=== PATIENT | male | born 1955 | race Caucasian/White ===

== ENCOUNTER 2023-09-08 09:30 | Outpatient (RCR) | payer OTHER, MEDICARE, SELFPAY ==
--- NOTE | 2023-07-11 10:55 | HP.PTEVAL ---
Patient's Visit Information Visit Information Visit Information: JUDITH TEJADA is a 67 year old M referred to Physical Therapy by Dr. Leo Loyola DPM with a diagnosis of R plantar fascitis. Date of Evaluation: 07/11/23 Physical Therapist: Turner Leigh DPT Visit Plan Frequency: 2x /Week Duration: 4 Weeks Plan: Start with graston and US to R medial longitudinal arch 3) manual to longitudinal arch 2) G/S stretching 3) foot intrinsic strengthening in [place] progressing to [facility] [place] Subjective Subjective: Pt. is here today for his initial evaluation with diagnosis of R plantar fasciitis. Pt. reports having symptoms since January. He has tried several treatments including stretching/rolling at home, injection, orthotics. Pt. is hopeful to reduce symptoms in order to get back to all recreational walking without issues. Pt. has had some relief with orthotics, but is still pretty sore. Worse in the AMs and with initial standing. Pt. at medial longitudinal arch. No N/T noted. Pt. has done some stretching, but super consistent at home. Pain R longitudinal arch: Pain Intensity (Out of 10): 4 Pain Intensity Range: 3 and 8 Objective Objective: POSTURE: Pt. has fairly good arch positioning in stance. Drop in navicular in SLS, barefoot. Normal knee positioning noted. PALPATION: pt. very tender along longitudinal arch and medial plantar fascia origin. NEURO: Normal throughout BLEs. ROM: L ankle: DF 16deg, PF 47deg, INV 13deg, EVR 7deg. R ankle: DF 8deg, PF 44deg, INV 12deg, EVR 4 deg. Normal B knee ROM noted. MMT: L ankle 5/5 throughout; foot flexor intrinsic 5/5. R ankle: DF 5/5, PF 5-/5 increase NW, INV 5-/5 increase NW, EVR 5/5 NE. Foot intrinsic: 4/5 increase NW. GAIT: Barefoot. Pt. ambulates with antalgic pattern during R stance phase and push off (pre swing). Pt. has less pain with his shoes on, but still antalgic. STAIRS: ascending normal with 1 HR, descending: early heel off mild increase NW. SPECIAL TESTING: + windlass test on R side. both with bent and straight knee in WBing. Balance/Special Test Scores Lower Extremity Functional Score: 44 Goals Goal 1:: LTG: Pt. to be I with HEP for LE stretching and strengthenening. Goal Time Frame: 4-6 Weeks Goal 2:: STG: pt. to have decreased R foot pain to less than 3/10 with all recreational walking and ADLs. Goal Time Frame: 2-4 Weeks Goal 3:: LTG: pt. to complete all recreational walking without increase in R foot pain. Goal Time Frame: 4-6 Weeks Goal 4:: LTG: pt. to have increased R ankle and foot intrinsic strength to 5/5 throughout in order to support longitudinal arch with all recreational activities. Goal Time Frame: 4-6 Weeks Rehabilitation Potential Physical Therapy Diagnosis: Pt. has signs and symptoms consistent with R plantar fasciitis. Pt. has marked hypomobility, increased pain in plantar fascia and difficulty with walking. pt. would benefit from PT to address the above limitations progressing back to all recreational activities without incfrease in symptoms. Rehabilitation Potential: Excellent Anticipated Interventions Patient/Client Instruction: Educate patient on: Condition, Plan of Care, Risk Factors and Benefits of Fitness Program For the Purpose of:: To facilitate caregiver knowledge, To improve self management, To prevent re-injury, To improve ability to perform tasks related to life management and To improve tolerance to ADL's Therapeutic Exercise to Include: Strength training, Power training and Postural training For the Purpose of:: To decrease pain, To increase ROM, To improve nutrient delivery to tissue, To increase oxygenation perfusion, To improve health of tissue, To decrease soft tissue restriction and To increase flexibility/ROM Manual Therapy Techniques to Include: Mobilization, Functional dry needling and Soft tissue mobilization For the Purpose of:: To decrease pain, To decrease swelling/inflammation, To increase ROM, To improve nutrient delivery to tissue, To improve muscle performance and motor function, To decrease soft tissue restriction and To increase flexibility/ROM Ultrasound (thermal/non thermal): Yes For the Purpose of:: To decrease pain, To decrease swelling/inflammation and To increase ROM Text: Thank you for the opportunity to evaluate your patient. For Medicare and Medicare HMO plans, please review the plan of care and approve it. It will need to be FAXED BACK to us at [phone] for Medicare purposes. For Medicare only, by signing this I certify the plan of care. Please let me know if there are questions or concerns regarding this plan of care. Physician Signature: Date:
--- NOTE | 2023-12-18 12:50 | HP.PT.NRP ---
Patient Information Patient Information: JUDITH TEJADA was seen in my office for initial evaluation on 07/11/23. The following Plan of Care was established for this patient: POC Established Initial Frequency: 2x /Week Initial Duration: 4 Weeks Anticipated Interventions Patient/Client Instruction: Educate patient on: Condition, Plan of Care, Risk Factors and Benefits of Fitness Program For the Purpose of:: To facilitate caregiver knowledge, To improve self management, To prevent re-injury, To improve ability to perform tasks related to life management and To improve tolerance to ADL's Therapeutic Exercise to Include: Strength training, Power training and Postural training For the Purpose of:: To decrease pain, To increase ROM, To improve nutrient delivery to tissue, To increase oxygenation perfusion, To improve health of tissue, To decrease soft tissue restriction and To increase flexibility/ROM Manual Therapy Techniques to Include: Mobilization, Functional dry needling and Soft tissue mobilization For the Purpose of:: To decrease pain, To decrease swelling/inflammation, To increase ROM, To improve nutrient delivery to tissue, To improve muscle performance and motor function, To decrease soft tissue restriction and To increase flexibility/ROM Ultrasound (thermal/non thermal): Yes For the Purpose of:: To decrease pain, To decrease swelling/inflammation and To increase ROM Last Seen Last Seen: This patient was last seen in our office 08/30/23. Pertinent comments regarding their Physical therapy will appear below: Pt. was seen for his plantar fasciitis. Pt. was doing much better at his last visit. Pt. has not been seen in several months and will be DC from PT at this point in time. At this point I will be discontinuing this patient from physical therapy. I would be happy to see this patient again in the future if found appropriate by the physician. Thank you! Turner Leigh, DPT Balance/Gait/Functional tests Balance/Special Test Scores Lower Extremity Functional Score: 44
== END 2023-09-08 19:00 | disposition home or self-care (01) ==
LOC: PT 09:30
PROVIDERS: Referring Provider Student in an Organized Health Care Education/Training Program; Visit Provider Student in an Organized Health Care Education/Training Program
DX: M72.2 Plantar fascial fibromatosis (principal)
CPT/HCPCS: 97035; 97110; 97140; 97161